=== PATIENT | male | born 1950 | race American Indian/Alaskan Native ===

== ENCOUNTER 2016-08-31 07:03 | Day surgery (SDC) | payer MEDICARE ==
[~2016-08-31 07:03] MED LIST: FLAGYL 500 MG/100 ML 500 MG/100 ML BAG IV SCH; GARAMYCIN/NS 80 MG/100 ML 100 ML IV SCH
[2016-08-31] MEDS ORDERED: DILAUDID IV PRN (08:35)
--- NOTE | 2016-08-31 08:35 | Anesthesia Consultation ---
Anesthesia Consult and Med Hx Date of service: 08/31/16 - Airway Anesthetic Teeth Evaluation: Poor (missing teeth, denies loose), Crowns ROM Head & Neck: Adequate Mental/Hyoid Distance: Adequate Mallampati Class: Class II Intubation Access Assessment: Probably Good - Pulmonary Exam CTA: Yes - Cardiac Exam Cardiac Exam: RRR - Pre-Operative Health Status ASA Pre-Surgery Classification: ASA3 Proposed Anesthetic Plan: General - Pulmonary Hx Smoking: Yes (STOPPED X 43 YRS- 2 1/2 PPD X 12 YRS) Hx Asthma: Yes (seasonal) Hx Sleep Apnea: Yes (DX SLEEP APNEA , NO CPAP USE.) - Cardiovascular System Hx Hypertension: Yes (2006) - Central Nervous System Hx Seizures: No CVA: No - Endocrine Hx Renal Disease: No Hx Liver Disease: No - Other Systems Hx Cancer: No
--- NOTE | 2016-08-31 08:36 | Anesthesia Day of Surgery ---
Anesthesia Day of Surgery - Day of Surgery Patient Examined: Yes Patient H&P Reviewed: Yes Patient is NPO: Yes Beta Blockers: Yes
[2016-08-31] MEDS ORDERED: PEPCID PO NR (09:00)
[2016-08-31] MEDS ORDERED: NACL 0.9% 1000 ML 1,000 ML IV SCH (09:00)
[2016-08-31] MEDS ORDERED: ZOFRAN IV PRN (09:00)
[2016-08-31] MEDS ORDERED: VERSED IV NR (09:00)
[2016-08-31] MEDS ORDERED: DIPRIVAN 10 MG/ML IV ONE (09:10)
[2016-08-31] MEDS ORDERED: SUBLIMAZE ONE (09:11)
[2016-08-31] MEDS ORDERED: XYLOCAINE MPF 2% ONE (10:15)
[2016-08-31] MEDS ORDERED: WATER FOR IRRIG STERILE IR ONE (10:15)
[2016-08-31] MEDS ORDERED: ROBINUL ONE (10:15)
--- NOTE | 2016-08-31 10:37 | Short Stay Summary ---
Short Stay Documentation Date of service: 08/31/16 - History H&P: obtained from office - Allergies and Medications Current Medications: Allergies latex Allergy (Severe, Verified 08/31/16 09:00) Unknown PCP TOLD HIM HE WAS ALLERGIC TO LATEX -IT BLEW HIS RIGHT EAR OUT- EAR OK NOW. ciprofloxacin [From Cipro] Allergy (Verified 08/25/16 17:13) ELEVATED HP ciprofloxacin HCl [From Cipro] Allergy (Verified 08/25/16 17:13) ELEVATED BP codeine Allergy (Verified 08/25/16 17:13) Vomiting morphine Allergy (Verified 08/25/16 17:13) Vomiting nut - unspecified Allergy (Verified 08/25/16 17:15) Hives STATES ALLERGIC TO ALL NUTS Penicillins Allergy (Verified 08/25/16 17:15) Itching AND ELEVATED BP shellfish derived Allergy (Verified 08/25/16 17:15) Hives Home Medications Medication Instructions Recorded Confirmed Last Taken Type Fexofenadine HCl [Fexofenadine HCl] 180 mg PO DAILY 08/25/16 08/25/16 Unknown History Montelukast [Singulair] 10 mg PO PRN PRN 08/25/16 08/25/16 Unknown History NIFEdipine 10 mg PO DAILY 08/25/16 08/25/16 Unknown History Nebivolol HCl [Bystolic] 10 mg PO QDAY 08/25/16 08/25/16 Unknown History Triamcinolone Acetonide [Nasacort 10.8 ml NS DAILY 08/25/16 08/25/16 Unknown History SPRAY] amLODIPine [Norvasc] 5 mg PO DAILY 08/25/16 08/25/16 Unknown History Active Medications Famotidine (Pepcid) 20 mg PO PREOP NR Stop: 08/31/16 12:00 Last Admin: 08/31/16 09:02 Dose: 20 mg Hydromorphone HCl (Dilaudid) 0.5 mg IV Q10MIN PRN PRN Reason: Pain , Severe (7-10) Stop: 08/31/16 12:00 Gentamicin Sulfate/Sodium Chloride (Garamycin/Ns 80 Mg/100 Ml) 100 mls @ 200 mls/hr IV PREOP GAGE Metronidazole (Flagyl 500 Mg/100 Ml) 500 mg in 100 mls @ 100 mls/hr IV Q8HR GAGE Stop: 08/31/16 23:59 Sodium Chloride (Nacl 0.9% 1000 Ml) 1,000 mls @ 75 mls/hr IV DIRECT GAGE Last Admin: 08/31/16 09:01 Dose: 75 mls/hr Midazolam HCl (Versed) 2 mg IV PREOP NR Stop: 08/31/16 23:59 Last Admin: 08/31/16 09:03 Dose: 2 mg - Brief post op/procedure progress note Date of procedure: 08/31/16 Pre-op diagnosis: elevated PSA, BPH Post-op diagnosis: same Procedure: CYSTO, RPG, PUS BX (SATURATION) Anesthesia: GETA Surgeon: JACEK NICHOLAS Estimated blood loss: minimal Pathology: list (PROSTATE CORES) Specimen disposition: to lab Condition: stable - Hospital course Hospital course: [facility] OR CHART(PT HAS ALLERGIES BUT STATES HE CAN TAKE THESE DRUGS) - Disposition Condition at discharge: Stable Disposition: DC-01 TO HOME OR SELFCARE Short Stay Discharge Plan Follow up with: DYLON MINER MD [Primary Care Provider] - 7 Days
--- NOTE | 2016-08-31 11:10 | Ultrasound Report ---
ULTRASOUND-GUIDED INTRAOPERATIVE History: Prostate biopsy Findings: Endorectal ultrasound guidance was provided by radiology during prostate biopsy by Dr. Branch of urology. Prostate volume measures 37.1 cc. No complications. Impression: Successful prostate biopsy under ultrasound guidance.
[2016-08-31] MEDS ORDERED: PERCOCET 5/325 PO ONE (13:00)
--- NOTE | 2016-08-31 13:28 | Operative Report ---
PREOPERATIVE DIAGNOSIS: Elevated PSA, negative biopsy in the past. POSTOPERATIVE DIAGNOSIS: Elevated PSA, negative biopsy in the past. PROCEDURE: Cystoscopy, bilateral retrograde pyelograms, saturation biopsy. SURGEON: Telly Branch MD ANESTHESIA: General. ANESTHESIOLOGIST: Sidra Wu MD ESTIMATED BLOOD LOSS: Minimal. FLUIDS: Crystalloid. COMPLICATIONS: No complications. INDICATIONS: This patient is a 65-year-old gentleman who relocated from [place]. He has had previous elevated PSA reviewed his records. He has had a biopsy in 2010 and 2011, which was negative for PSA as high as 10. His repeat PSA is 11. He presents now for saturation biopsy. His insurance denied 3D MRI. DESCRIPTION OF PROCEDURE: The patient was taken to the operative suite, placed in a supine position. After adequate general anesthesia, placed in a dorsal lithotomy position, prepped and draped in a sterile fashion. Anton-cystourethroscopy was performed with 22 Latv[place] Storz cystoscope. The patient did have some mild trilobar prostatic obstruction. His bladder, no tumors or stones were noted. Bilateral retrograde pyelograms were obtained with an 8 [place] Arrington catheter and 8 mL of contrast. No filling defects or obstruction. Next, using an ultrasound probe, transrectal ultrasound of his prostate 2 views revealed 35 gram gland. With ultrasound guidance saturation biopsy was obtained, 4 cores at the base, mid, and apex on the right side and the left for a total of 24 cores. The patient tolerated the procedure well and was extubated. Rectal exam was benign. He was taken to recovery room in stable condition. He will go home on Bactrim and [place]. JOB# [id number] [facility]
--- NOTE | 2016-08-31 14:51 | Post Anesthesia Evaluation ---
- Post Anesthesia Evaluation Patient Participated: Yes Airway Patent: Yes Stable Respiratory Function: Yes Nausea/Vomiting: No Temp > 96.8F: Yes Pain Manageable: Yes Adequeate Hydration: Yes Anesthesia Complications: No Block Receding Appropriately: Not Applicable Patient on Ventilator: No
[2016-08-31 18:33] VITALS: BP 134/84
--- NOTE | 2016-09-01 08:01 | Fluoroscopy Report ---
RETROGRADE PYELOGRAM: History: Elevated PSA. Fluoroscopy was provided by radiology during retrograde urography by urology. There is adequate filling of the ureters and intrarenal collecting systems with no filling defects or anatomic abnormalities identified. Impression: No abnormality identified.
== END 2016-08-31 14:50 | disposition home or self-care (01) ==
LOC: OR 07:03
PROVIDERS: ATTEND Urology
DX: R97.20 Elevated prostate specific antigen [PSA] (principal); I10 Essential (primary) hypertension; F17.210 Nicotine dependence, cigarettes, uncomplicated; Z88.0 Allergy status to penicillin; Z91.013 Allergy to seafood; Z88.1 Allergy status to other antibiotic agents; Z91.040 Latex allergy status; Z88.5 Allergy status to narcotic agent; Z91.018 Allergy to other foods; Z88.8 Allergy status to other drugs, medicaments and biological substances; Z98.890 Other specified postprocedural states; Z79.899 Other long term (current) drug therapy; Z80.0 Family history of malignant neoplasm of digestive organs
CPT/HCPCS: 55700; 74420; 76998; 88305; A4217; C1758; J1170; J1580; J2250; J2704; J3010; J7030; Q9967